=== PATIENT | male | born 1960 | race Caucasian/White ===

== ENCOUNTER 2019-10-03 08:05 | Emergency (ER) | payer OTHER, SELFPAY ==
[~2019-10-03] VITALS: Ht 180.3 cm; Wt 84.1 kg
[2019-10-03 09:27] LABS: BASO % 0.2 % (0.0-1.0); EOS # 0.1 10^3/uL (0.0-0.5); HEMATOCRIT 44.4 % (42.0-52.0); HEMOGLOBIN 14.8 g/dl (13.5-17.5); LYMPH # 1.3 10^3/uL (1.5-5.0); LYMPH % 21.9 % (24.0-44.0); MEAN CORPUSCULAR HEMOGLOBIN 29.4 pg (27.0-33.0); MEAN CORPUSCULAR HGB CONC 33.3 g/dl (32.0-36.5); MEAN CORPUSCULAR VOLUME 88.1 fl (80.0-96.0); MONO # 0.5 10^3/uL (0.0-0.8); MONO % 8.7 % (0.0-5.0); NEUTROPHILS # 4.1 10^3/uL (1.5-8.5); NEUTROPHILS % 67.9 % (36.0-66.0); PLATELET COUNT, AUTOMATED 216 10^3/uL (150-450); RED BLOOD COUNT 5.04 10^6/uL (4.30-6.10)
[2019-10-03 09:48] LABS: BLOOD UREA NITROGEN 24 MG/DL (7-18); CALCIUM LEVEL 9.5 MG/DL (8.5-10.1); CARBON DIOXIDE LEVEL 26 MEQ/L (21-32); CHLORIDE LEVEL 110 MEQ/L (98-107); CREATININE FOR GFR 0.94 MG/DL (0.70-1.30); GLOMERULAR FILTRATION RATE > 60.0 (>56); GLUCOSE, FASTING 96 MG/DL (70-100); POTASSIUM SERUM 4.6 MEQ/L (3.5-5.1); SODIUM LEVEL 141 MEQ/L (136-145)
[2019-10-03] MEDS ORDERED: KETOROLAC 30 MG/ML VIAL (J1885) IV ONE (10:00)
[2019-10-03] MEDS ORDERED: LORazepam 2 MG/ML VIAL (J2060) IV ONE (10:00)
--- NOTE | 2019-10-03 10:24 | REP ---
Lumbar spine series: Five views. History: Worsening back pain. Comparison study: September 22, 2005. Findings: Lumbar vertebral body heights are preserved. There is some straightening. Alignment is normal. There is no evidence of spondylolysis or spondylolisthesis. There is moderate diffuse degenerative disc disease in the lumbar spine. This is more pronounced than on the prior study. Most prominent sclerosis and joint space narrowing is seen and L3-4 L4-5. L5-S1 is spared. There is a levoconvex curve in the lumbar spine. Facet arthropathy is seen particularly on the right and L3-4 L4-5 and L5-S1. There is sacralization of the left transverse process at L5 as before. Psoas margins are symmetric. Sacrum is unremarkable. Impression: Diffuse degenerative disc disease more pronounced than on 2005 study. Osteoarthritic facet sclerosis and hypertrophy particularly on the right at L3-4 L4-5 and L5-S1. Mild levoconvex curvature. No acute bony abnormality. Electronically Signed by Pepe Zendejas MD 10/03/2019 10:16 A
[2019-10-03] MEDS ORDERED: NAPR-837 PO (12:44)
[2019-10-03] MEDS ORDERED: CYCL5TAB PO (12:44)
[2019-10-03 13:12] VITALS: BP 143/94
== END 2019-10-03 13:10 | disposition home or self-care (01) ==
LOC: EDBD 08:05 → M ED 08:05
DX: S39.012A Strain of muscle, fascia and tendon of lower back, initial encounter (principal); X58.XXXA Exposure to other specified factors, initial encounter; M51.36 Other intervertebral disc degeneration, lumbar region; M46.96 Unspecified inflammatory spondylopathy, lumbar region
CPT/HCPCS: 72110; 80048; 85025; 96374; 96375; 99284; J1885; J2060

== ENCOUNTER 2021-12-06 11:39 | Emergency (ER) | payer SELFPAY ==
[~2021-12-06] VITALS: Ht 180.3 cm; Wt 88.0 kg
[~2021-12-06 11:39] MED LIST: CYCL5TAB PO; NAPR-837 PO
[2021-12-06 11:40] VITALS: BP 143/93
== END 2021-12-06 13:43 | disposition left against medical advice (07) ==
LOC: M ED 11:39
DX: Z53.21 Procedure and treatment not carried out due to patient leaving prior to being seen by health care provider (principal)